=== PATIENT | female | born 1945 | race Caucasian/White ===

== ENCOUNTER → 2016-11-10 | Outpatient (CLI) | payer OTHER ==
[~2016-11-10] MED LIST: ASCO1CAP3 PO; CALC-354 PO; HYDR25TA4 PO; LEVO-371 PO; LISI-461 PO; LUTE20TA PO; METO25TA3 PO; MULT-513 PO; POTA10TA32 PO; PRED20TA PO; PRM/3 PO; TNR25 PO
--- NOTE | 2016-11-10 14:00 | MAMMOGRAPHY REPORT ---
BILATERAL DIGITAL SCREENING MAMMOGRAM WITH CAD: 11/10/2016 CLINICAL HISTORY: Routine screening. Patient has no complaints. TECHNIQUE: Bilateral CC and MLO views were obtained. Current study was also evaluated with a Comput er Aided Detection (CAD) system. COMPARISON: Comparison is made to exams dated: 11/06/2015 mammogram, 11/02/2013 mammogram, 11/03/2014 [facility], 11/01/2012 mammogram, 10/27/2011 mammogram, and 10/23/2010 mammogram - [facility]. BREAST COMPOSITION: The tissue of both breasts is extremely dense, which lowers the sensitivity of mammography. FINDINGS: There are benign coarse calcifications bilaterally and stable groupings of punctate microc alcifications in the left breast. No new suspicious mass, architectural distortion or cluster of mi crocalcifications is seen. IMPRESSION: ACR BI-RADS CATEGORY 1: NEGATIVE There is no mammographic evidence of malignancy. A 1 year screening mammogram is recommended. The p atient will receive written notification of the results. Approximately 10% of breast cancers are not detected with mammography. A negative mammographic repor t should not delay biopsy if a clinically suggestive mass is present. Ju Miller M.D. ay/:11/10/2016 12:17:47 Commercial Intelligence Manager: Carolina CARRERA(R)(M), [facility] letter sent: Normal 1/2 BI-RADS Code: ACR BI-RADS Category 1: Negative
== END ==
LOC: C.MAMM 07:54
PROVIDERS: ATTEND Family Medicine
DX: Z12.31 Encounter for screening mammogram for malignant neoplasm of breast (principal)

== ENCOUNTER → 2017-05-27 | Outpatient (CLI) | payer OTHER ==
--- NOTE | 2017-05-27 08:44 | DIAGNOSTIC IMAGING REPORT ---
LUMBAR SPINE MIN 4 VIEWS HISTORY: 72 years-old Female LOW BACK PAIN acute low back and left hip pain after lifting injury COMPARISON: Lumbar spine radiographs 08/11/2015 TECHNIQUE: 5 views of the lumbar spine FINDINGS: 5 lumbar type vertebral segments are present. There is no acute fracture or subluxation. No compression deformity identified. The intervertebral disc spaces are well-maintained. Mild to moderate facet arthropathy is seen at L4-L5 and L5-S1. No spondylolysis or spondylolisthesis identified. There is mild plaquing of the abdominal aorta. IMPRESSION: 1. No acute fracture or subluxation of the lumbar spine. 2. Mild to moderate facet arthropathy at L4-L5 and L5-S1. No significant intervertebral disc space narrowing. The above report was generated using voice recognition software. It may contain grammatical, syntax or spelling errors. Electronically signed by: Adonis Argueta M.D. 05/27/2017 8:43 AM Dictated Date/Time: 05/27/2017 8:41 AM
== END | disposition home or self-care (01) ==
LOC: C.RDSM 08:25
PROVIDERS: ATTEND Internal Medicine
DX: M54.5 Low back pain (principal); I70.0 Atherosclerosis of aorta; M46.97 Unspecified inflammatory spondylopathy, lumbosacral region; M46.96 Unspecified inflammatory spondylopathy, lumbar region; M25.552 Pain in left hip; Z87.828 Personal history of other (healed) physical injury and trauma

== ENCOUNTER 2017-06-04 04:02 | Emergency (ER) | payer OTHER ==
[~2017-06-04] VITALS: Ht 161.3 cm; Wt 44.6 kg
[~2017-06-04 04:02] MED LIST changes: -METO25TA3 PO; -PRED20TA PO
[2017-06-04 04:07] VITALS: Ht 161.3 cm; Wt 44.6 kg
[2017-06-04] MEDS ORDERED: METO25TA3 PO (05:09)
[2017-06-04] MEDS ORDERED: PRED20TA PO (05:09)
--- NOTE | 2017-06-04 05:25 | EMERGENCY ROOM VISIT NOTE ---
History Report prepared by Fili: Edy Wolff Under the Supervision of: Dr. Juju Garay D.O. First contact with patient: 04:40 Chief Complaint: EYE ASSESSMENT Stated Complaint: EYE IRRITATION History of Present Illness The patient is a 72 year old female who presents to the Emergency Room with complaints of constant left eye irritation starting around an hour ago. The patient states that she was spray painting with a metallic paint, and she was not wearing any protective eyewear. She states that she does not have any eyeball discomfort, and she does not have any visual changes. The patient states that it feels swollen and tight, and she is tearing. She denies any forehead pain, runny nose, and cough. The patient states that she recently was working outside and got an insect bite on her forehead. The patient has a history of retina damage in her right eye. Source of History: patient Onset: an hour ago Position: eye (left) Quality: other (irritation) Timing: constant Associated Symptoms: No cough Review of Systems See HPI for pertinent positives & negatives. A total of 10 systems reviewed and were otherwise negative. Past Medical & Surgical Medical Problems: (1) Concussion (2) Concussion (3) Contusion of multiple sites (4) Fall (5) Head injury (6) Hypertension Nos (7) Rib fracture Surgical Problems: (1) History of hysterectomy Family History Heart disease Hypertension Social History Smoking Status: Never Smoker Alcohol Use: none Drug Use: none Marital Status: Housing Status: lives with significant other Occupation Status: retired Current/Historical Medications Scheduled Ascorbic Acid (Vitamin C), 500 MG PO DAILY Calcium Carbonate-Cholecalcife (Caltrate 600+D), 1 TAB PO DAILY Estrogens, Conjugated (Premarin), 0.3 MG PO Q3 DAYS Hydrochlorothiazide (Hctz), 25 MG PO DAILY Lisinopril (Lisinopril), 5 MG PO DAILY Lutein (Lutein), 20 MG PO DAILY Metoprolol Succ (Toprol Xl) (Toprol-Xl), 25 MG PO DAILY Multivitamins/Minerals (Mvi With Minerals), 1 TAB PO DAILY Potassium Chloride Microencaps (Potassium Chloride Er), 10 MEQ PO DAILY Prednisone (Prednisone), Unknown Dose PO DAILY Allergies Coded Allergies: Epinephrine (Verified Allergy, Intermediate, "LIGHTHEADED", 06/04/17) Penicillins (Verified Allergy, Unknown, "HAPPENED A LONG TIME AGO"., ) Procaine (Verified Allergy, Unknown, "CAN'T REMEMBER"., 06/04/17) Sympathomimetics (Verified Allergy, Unknown, "CAN'T REMEMBER"., 06/04/17) Physical Exam Vital Signs Date Time Temp Pulse Resp B/P (MAP) Pulse Ox O2 Delivery O2 Flow Rate FiO2 06/04/17 05:32 36.8 75 18 160/85 97 06/04/17 04:07 36.4 62 20 165/97 100 Room Air Right Eye Acuity: 20/40 Left Eye Acuity: 20/40 Physical Exam HEENT: There is an insect bite above the left eyebrow and edema to the left eye lid Neck: No cervical lymphadenopathy. Medical Decision & Procedures Medications Administered Medications (Trade) Dose Ordered Sig/Jeffrey Route Start Time Stop Time Status Last Admin Dose Admin Ciprofloxacin HCl (Ciprofloxacin 0.3% Op Soln) 2 drops NOW ONCE OPL 06/04/17 05:30 06/04/17 05:31 DC 06/04/17 05:25 2 DROPS Procedure Ciprofloxacin 0.3% OP Soln 2 drops OPL Slit Lamp Examination Indication: Left eye irritation Slit lamp examination was performed in the standard fashion. Cornea appeared clear. Anterior chamber was quiet. Scleral injection was present. only slight discharge present. Fluorescein examination performed and revealed very superficial and punctate corneal abrasions. No foreign bodies noted. Negative Anju sign. The patient tolerated the procedure well without complication. ED Course 0444: The medical student evaluated the patient 0514: Past medical records reviewed. The patient was evaluated in room B5. A complete history and physical exam was performed. A slit-lamp exam was performed. 0530: Ciprofloxacin 0.3% OP Soln 2 drops OPL Medical Decision The patient is a 72 year old female who presents to the ED with left eye irritation. Differential diagnosis includes conjunctivitis, corneal foreign body , corneal abrasion, and shingles. The patient admits to spray painting earlier today without eye protection. She then developed some foreign body sensation to the left eye and around his generalized irritation. The eyelid was flipped and no foreign bodies were identified. On fluorescein staining, there was punctate corneal abrasions noted. The patient will be started on antibiotic drops. If symptoms are not improving, she should follow-up with her eye doctor by Thursday. If symptoms worsen, she should return here to the emergency department. Medication Reconcilliation Current Medication List: was personally reviewed by me Blood Pressure Screening Patient's blood pressure: Elevated blood pressure Impression Primary Impression: Left corneal abrasion Scribe Attestation The scribe's documentation has been prepared under my direction and personally reviewed by me in its entirety. I confirm that the note above accurately reflects all work, treatment, procedures, and medical decision making performed by me. Departure Information Dispostion Home / Self-Care Referrals Shane Sandoval III, M.D. (PCP) Forms HOME CARE DOCUMENTATION FORM, IMPORTANT VISIT INFORMATION, WORK / SCHOOL INSTRUCTIONS Patient Instructions My [facility] Additional Instructions Rest with your head elevated. Ciloxan drops - 2 drops tp left eye every 4-6 hours Motrin for pain If eye not improving by Thursday, follow up with your eye doctor If symptoms worsen, return to the ER Problem Qualifiers Primary Impression: Left corneal abrasion Encounter type: initial encounter Qualified Codes: S05.02XA - Injury of conjunctiva and corneal abrasion without foreign body, left eye, initial encounter
[2017-06-04] MEDS ORDERED: CIPROFLOXACIN HCL 0.3% OP SOLN 2.5 ML BTL OPL ONE (05:30)
[2017-06-04 05:32] VITALS: BP 160/85; PULSE 75; TEMP 36.8; O2SAT 97
== END 2017-06-04 05:33 | disposition home or self-care (01) ==
LOC: C.EDB 04:03
DX: S05.02XA Injury of conjunctiva and corneal abrasion without foreign body, left eye, initial encounter (principal); X58.XXXA Exposure to other specified factors, initial encounter; Y92.9 Unspecified place or not applicable; I10 Essential (primary) hypertension; Z79.899 Other long term (current) drug therapy

== ENCOUNTER → 2017-11-12 | Outpatient (CLI) | payer OTHER ==
[~2017-11-12] MED LIST changes: -LEVO-371 PO; +METO25TA3 PO; +PRED20TA PO; -TNR25 PO
--- NOTE | 2017-11-12 15:15 | MAMMOGRAPHY REPORT ---
BILATERAL DIGITAL SCREENING MAMMOGRAM TOMOSYNTHESIS WITH CAD: 11/12/2017 CLINICAL HISTORY: Routine screening. TECHNIQUE: Breast tomosynthesis in addition to standard 2D mammography was performed. Current study was also evaluated with a Computer Aided Detection (CAD) system. COMPARISON: Comparison is made to exams dated: 11/10/2016 mammogram, 11/06/2015 mammogram, 11/03/2014 [facility], 11/02/2013 mammogram, 11/01/2012 mammogram, and 10/27/2011 mammogram - [facility] BREAST COMPOSITION: The tissue of both breasts is extremely dense, which lowers the sensitivity of m ammography. FINDINGS: No suspicious masses, calcifications, or areas of architectural distortion are noted in ei ther breast. There has been no significant interval change compared to prior exams. Scattered bilater al benign-appearing calcifications are not significantly changed. IMPRESSION: ACR BI-RADS CATEGORY 2: BENIGN There is no mammographic evidence of malignancy. A 1 year screening mammogram is recommended. The pa tient will receive written notification of the results. Approximately 10% of breast cancers are not detected with mammography. A negative mammographic report should not delay biopsy if a clinically suggestive mass is present. Milka Knutson M.D. /:11/12/2017 08:29:56 Sales Commissions Analyst: Zelal[place] JOLLY)(), [facility] letter sent: Normal 1/2 BI-RADS Code: ACR BI-RADS Category 2: Benign
== END | disposition home or self-care (01) ==
LOC: C.MAMM 07:50
PROVIDERS: ATTEND Family Medicine
DX: Z12.31 Encounter for screening mammogram for malignant neoplasm of breast (principal)